=== PATIENT | female | born 1975 | race Caucasian/White ===

== ENCOUNTER → 2019-01-29 | Outpatient (CLI) | payer OTHER ==
--- NOTE | 2019-01-29 10:49 | XR ---
EXAMINATION TYPE: XR ribs RT w pa chest xray DATE OF EXAM: 01/29/2019 COMPARISON: 12/23/2011 TECHNIQUE: PA view of the chest and 4 views of the right ribs are submitted. HISTORY: Pain right lower posterior and lateral ribs FINDINGS: The lungs are clear and there is no pneumothorax, pleural effusion, or focal pneumonia. Hyperinflat ion noted. There is a subtle deformity of the posterior lateral right 11th rib. IMPRESSION: 1. Subtle deformity posterior lateral right 11th rib for which bone scan is suggested. Nondisplaced f racture not excluded.
== END | disposition home or self-care (01) ==
LOC: RADXRYALE 10:06
PROVIDERS: ATTEND Physician Assistant Medical
DX: M95.4 Acquired deformity of chest and rib (principal)

== ENCOUNTER → 2019-08-07 | Outpatient (CLI) | payer OTHER ==
--- NOTE | 2019-08-07 15:47 | XR ---
EXAMINATION TYPE: XR ribs RT w pa chest xray DATE OF EXAM: 08/07/2019 CLINICAL HISTORY: Right anterior rib pain for 6 months with no known injury. TECHNIQUE: Single frontal view of the chest is obtained. 2 views of the right ribs were also obtained . COMPARISON: 01/29/2019 FINDINGS: There is no focal air space opacity, pleural effusion, or pneumothorax seen. The cardiac silhouette size is within normal limits. The osseous structures are intact. The previously seen sub tle fracture deformity of the posterior lateral right 11th rib is no longer evident and has healed in the interim. No new acute displaced right rib fracture is seen. Cholecystectomy clips are noted. IMPRESSION: Interval healing of the previously seen posterior lateral right 11th rib fracture on the prior of 02/08/2019. No acute displaced right rib fracture. No acute cardiopulmonary pathology.
== END | disposition home or self-care (01) ==
LOC: RADXRYALE 15:23
PROVIDERS: ATTEND Physician Assistant Medical
DX: S22.31XA Fracture of one rib, right side, initial encounter for closed fracture (principal); R10.811 Right upper quadrant abdominal tenderness

== ENCOUNTER → 2021-03-01 | Outpatient (CLI) | payer MEDICAID ==
--- NOTE | 2021-03-02 13:38 | US ---
EXAMINATION TYPE: US mass soft tissue chest/back DATE OF EXAM: 03/01/2021 COMPARISON: NONE CLINICAL HISTORY: R22.2 MASS ON BACK. Patient has palpable area right back Patient's area of palpable lump scanned, mid right back. No sonographic abnormality visualized on thi s exam. If Alternative imaging would be of benefit, MRI can be performed IMPRESSION: 1. Negative soft tissue ultrasound.
== END | disposition home or self-care (01) ==
LOC: RADUSWWP 15:49
PROVIDERS: ATTEND Internal Medicine
DX: R22.2 Localized swelling, mass and lump, trunk (principal)

== ENCOUNTER → 2021-03-01 | Outpatient (CLI) | payer MEDICAID ==
--- NOTE | 2021-03-10 11:04 | MM ---
Reason for exam: screening (asymptomatic). Last mammogram was performed 1 year and 1 month ago. History: Family history of breast cancer in paternal grandmother and breast cancer in paternal aunt. Benign cyst aspiration of the left breast, 2019. Physical Findings: A clinical breast exam by your physician is recommended on an annual basis and results should be correlated with mammographic findings. MG 3D Screening Mammo W/Cad Bilateral CC and MLO view(s) were taken. Prior study comparison: February 03, 2020, mammogram, performed at [facility]. The breast tissue is heterogeneously dense. This may lower the sensitivity of mammography. Stable grouped calcifications posterior lateral right breast. Previous 12 o'clock left beast mass has resolved. No significant changes when compared with prior studies. ASSESSMENT: Benign, BI-RAD 2 RECOMMENDATION: Routine screening mammogram of both breasts in 1 year.
== END | disposition home or self-care (01) ==
LOC: RADMAMWWP 15:53
PROVIDERS: ATTEND Student in an Organized Health Care Education/Training Program
DX: Z12.31 Encounter for screening mammogram for malignant neoplasm of breast (principal); Z80.3 Family history of malignant neoplasm of breast
CPT/HCPCS: 77063; 77067

== ENCOUNTER 2021-12-20 08:23 | Day surgery (SDC) | payer MEDICAID ==
[2021-12-16 10:52] VITALS: BMI 19.9
[~2021-12-20 08:23] MED LIST: DEXAMETHASONE SOD PHOSPHATE 4 MG/ML 1 ML VIAL IV ONE; HYDROmorphone 0.5 MG/0.5 ML SYRINGE IVP PRN; LACTATED RINGERS 1,000 ML IV SCH; MIDAZOLAM 2 MG/2 ML VIAL IV PRN; Pre Op ABX Message 1 EACH MISC MISCELLANE ONE; SCOPOLAMINE 1.5MG/72HR PATCH TRANSDERM ONE
[2021-12-20] MEDS: ONDANSETRON 4 MG/2 ML VIAL IVP ONE ×2 (08:56→11:37)
[2021-12-20] MEDS ORDERED: fentaNYL (PF) 50 MCG/ML 2 ML AMP ONE (10:13)
[2021-12-20] MEDS ORDERED: MIDAZOLAM 2 MG/2 ML VIAL ONE (10:13)
[2021-12-20] MEDS ORDERED: KETOROLAC 15 MG/ML 1 ML VIAL ONE (10:13)
[2021-12-20] MEDS ORDERED: PROPOFOL 10 MG/ML 20 ML VIAL IV ONE (10:13)
[2021-12-20] MEDS ORDERED: LIDOCAINE 1% INJ 10MG/ML (20 ML MDV) ONE (10:13)
[2021-12-20] MEDS ORDERED: diphenhydrAMINE 50 MG/ML 1 ML VIAL IVP PRN (10:46)
[2021-12-20] MEDS ORDERED: Acetaminophen-Codeine 300-30mg TAB PO PRN ×2 (10:46)
[2021-12-20] MEDS ORDERED: METOCLOPRAMIDE 5 MG/ML 2 ML VIAL IVP PRN (10:46)
[2021-12-20] MEDS ORDERED: SIMETHICONE 80 MG CHEWABLE PO PRN (10:46)
[2021-12-20] MEDS ORDERED: KETOROLAC 15 MG/ML 1 ML VIAL IVP PRN (10:46)
[2021-12-20] MEDS ORDERED: ONDANSETRON 4 MG/2 ML VIAL IVP PRN (10:46)
--- NOTE | 2021-12-20 10:54 | P.OP ---
Date of Procedure: 12/20/21 Preoperative Diagnosis: #1. Menorrhagia Postoperative Diagnosis: Same plus #2. Endometrial polyp Procedure(s) Performed: #1. Diagnostic hysteroscopy #2. Dilation and curettage with endometrial polypectomy #3. NovaSure endometrial ablation Anesthesia: other (Gen. by LMA) Surgeon: Brien Arias Estimated Blood Loss (ml): 5 IV fluids (ml): 500 Urine output (ml): 20 Pathology: none sent (Endometrial curettings with endometrial polyp) Condition: stable Disposition: PACU Operative Findings: Gravid pelvic examination demonstrated a roughly 5 week anteverted mobile normal shaped uterus with normal adnexa bilaterally. Intraoperatively, the uterus sounded to approximately 8 cm with a 3 cm cervical length. The diagnostic hysteroscope was utilized to see the bilateral tubal ostia and note a moderately sized approximately 1 cm endometrial polyp arising from the posterior lower uterine segment. Otherwise, there was no other pathology noted. Moderate amount of tissue was removed with curettage after having removed the polyp with the polyp forceps. The settings for the NovaSure tool where a length of 5.0 cm, a width of 4.4 cm for a total power 121 W. After a run time of 101 seconds, the base unit read "procedure complete." The postprocedural hysteroscopic result appeared excellent. The patient is a borderline candidate for vaginal instructed he had past and would likely benefit from a da Billie approach should become necessary. Description of Procedure: The patient was prepped and draped in usual fashion after general anesthesia was administered by the anesthesiologist. A weighted speculum was placed and the bladder drained of approximately 20 mL of clear adela urine. The anterior lip of the cervix was grasped with a single-tooth tenaculum and uterus sounded to 8 cm as noted above with a cervical length of 3 cm. Serial dilation was carried out to admit the diagnostic hysteroscope which was placed into the cavity and the cavity distended with normal saline. The bilateral tubal ostia were seen. There was a moderate amount of shaggy endometrial tissue noted but a very clear endometrial polyp was seen arising from the posterior lower uterine segment approximately 1 cm in size. After hysteroscopy, the scope was set aside and the polyp forceps introduced and the polyp removed in what appeared to be a complete manner. A medium sharp curette was introduced and the ammeter cavity thoroughly and circumferentially curetted on 2 a Telfa placed in the vagina with a moderate amount of tissue returned. The tissue as well as the endometrial polyp were sent together to pathology for diagnoses. The NovaSure tool was then introduced into the endometrial cavity were was opened and seated well. The settings for the tool were length of 5.0 cm, a width of 4.4 cm for a total power 121 W. The cavity check was attempted and passed without difficulty and the tool was enabled. The run was started and, after a run time of 101 seconds, the base unit read "procedure complete." The NovaSure tool was closed, removed, and discarded. The diagnostic hysteroscope was reintroduced and the hysteroscopic result appeared to be excellent. All instrumentation was then removed. One small point of bleeding at one of the tenaculum sites was made hemostatic with pressure. Estimated blood loss for the entire case was less than 5 mL. There were no complications. All sponge, instrument, and needle counts were correct. The patient tolerated the procedure well and proceeded to the recovery room in stable condition.
[2021-12-20 10:58] VITALS: TEMP 97.8
[2021-12-20] MEDS ORDERED: LACTATED RINGERS 1,000 ML IV SCH (11:00)
[2021-12-20 11:50] VITALS: RESP 20
[2021-12-20] MEDS ORDERED: LACTATED RINGERS 1,000 ML IV ONE (12:06)
[2021-12-20 12:15] VITALS: BP 118/81; PULSE 62
== END 2021-12-20 12:36 | disposition home or self-care (01) ==
LOC: OR 08:23
PROVIDERS: ATTEND Obstetrics & Gynecology
DX: N92.0 Excessive and frequent menstruation with regular cycle (principal); N84.0 Polyp of corpus uteri; K21.9 Gastro-esophageal reflux disease without esophagitis; F32.A Depression, unspecified; Z98.890 Other specified postprocedural states; Z79.899 Other long term (current) drug therapy; Z82.49 Family history of ischemic heart disease and other diseases of the circulatory system; Z80.3 Family history of malignant neoplasm of breast
CPT/HCPCS: 81025; 88305; 58563; J2250; J1100; J2405; J2001; J3010; J1885; J2704

== ENCOUNTER → 2022-09-30 | Outpatient (CLI) | payer MEDICAID ==
--- NOTE | 2022-10-03 08:17 | MM ---
Reason for Exam: Screening (asymptomatic). Last mammogram was performed 1 year(s) and 7 month(s) ago. Patient History: Menarche at age 14. First Full-Term at age 19. Patient has history of breast feeding. 2020, Benign Cyst Aspiration on the left side. Paternal grandmother had breast cancer. Paternal aunt had breast cancer. Mother had breast cancer, age 67. Risk Values: Renetta 5 year model risk: 1.6%. NCI Lifetime model risk: 16.9%. Prior Study Comparison: 02/03/2020 Screening Mammogram, [facility]. 03/01/2021 Bilateral Screening Mammogram, [facility]. Tissue Density: The breast tissue is heterogeneously dense. This may lower the sensitivity of mammography. Findings: Analyzed By CAD. There is no suspicious group of microcalcifications or new suspicious mass in either breast. Overall Assessment: Negative, BI-RAD 1 Management: Screening Mammogram of both breasts in 1 year. A clinical breast exam by your physician is recommended on an annual basis and results should be correlated with mammographic findings. [facility] will attempt to contact patient to return for supplemental views and ultrasound if indicated. Electronically signed and approved by: James Giordano DO
== END | disposition home or self-care (01) ==
LOC: RADMAMWWP 16:00
PROVIDERS: ATTEND Internal Medicine
DX: Z12.31 Encounter for screening mammogram for malignant neoplasm of breast (principal); Z80.3 Family history of malignant neoplasm of breast
CPT/HCPCS: 77063; 77067